=== PATIENT | male | born 1955 | race African-American/Black ===

== ENCOUNTER 2017-08-30 18:26 | Emergency (ER) | payer MEDICAID ==
[~2017-08-30] VITALS: Ht 175.3 cm; Wt 69.0 kg
[~2017-08-30 18:26] MED LIST: LISI30TA4 PO; OXYC-307 PO; OXYC30TA66 PO; TIMO1DRO2 OP
[2017-08-30] MEDS ORDERED: DIPH,PERTUSS(ACELL),TET VAC/PF 0.5 ML IM-VACC ONE (19:00)
[2017-08-30 19:07] LABS: BASOPHILS # (AUTO) 0.04 x10^3/uL (0-0.1); BASOPHILS % (AUTO) 1 % (0-1); EOSINOPHILS % (AUTO) 4 % (1-7); LYMPHOCYTES # (AUTO) 2.43 x10^3/uL (1-3.4); LYMPHOCYTES % (AUTO) 31 % (22-44); MD NO; MEAN CORPUSCULAR HEMOGLOBIN 28.1 pg (27.5-34.5); MEAN CORPUSCULAR HGB CONC 33.3 g/dL (33.2-36.2); MEAN CORPUSCULAR VOLUME 84.3 fL (81-97); MEAN PLATELET VOLUME 7.7 fL (7.4-10.4); MONOCYTES # (AUTO) 0.52 x10^3/uL (0.2-0.8); MONOCYTES % (AUTO) 7 % (2-9); NEUTROPHILS # (AUTO) 4.65 x10^3/uL (1.8-6.8); NEUTROPHILS % (AUTO) 58 % (42-75); PLATELET COUNT 324 x10^3/uL (130-400); RED BLOOD COUNT 5.02 x10^6/uL (4.38-5.82); RED CELL DISTRIBUTION WIDTH 13.2 % (9.4-14.8)
[2017-08-30 19:19] LABS: ALBUMIN 3.8 g/dL (3.4-5.0); ANION GAP 12 mmol/L (5-15); CALCIUM 8.6 mg/dL (8.5-10.1); CHLORIDE 109 mmol/L (98-107); CREATININE 0.94 mg/dL (0.7-1.3)
[2017-08-30 21:41] VITALS: BP 133/88
== END 2017-08-30 21:55 | disposition home or self-care (01) ==
LOC: ED 21:40
DX: S05.11XA Contusion of eyeball and orbital tissues, right eye, initial encounter (principal); S00.81XA Abrasion of other part of head, initial encounter; F10.120 Alcohol abuse with intoxication, uncomplicated; I10 Essential (primary) hypertension; F17.200 Nicotine dependence, unspecified, uncomplicated; X58.XXXA Exposure to other specified factors, initial encounter; Y93.89 Activity, other specified; Y92.89 Other specified places as the place of occurrence of the external cause; Y99.8 Other external cause status
CPT/HCPCS: 36415; 70450; 71045; 72125; 80048; 82040; 85025; 93005; 99285

== ENCOUNTER 2019-07-07 09:54 | Emergency (ER) | payer SELFPAY ==
[~2019-07-07] VITALS: Ht 170.2 cm; Wt 67.6 kg
[~2019-07-07 09:54] MED LIST changes: +LISI1TAB19 PO
[2019-07-07] MEDS ORDERED: ATENOLOL PO (10:25)
[2019-07-07] MEDS ORDERED: SODIUM CHLORIDE FLUSH 10ML SYR IVF ONE (10:30)
[2019-07-07] MEDS ORDERED: SODIUM CHLORIDE 0.9% 1,000ML IVBOLUS ONE ×2 (10:30→11:30)
[2019-07-07 10:49] LABS: BASOPHILS # (AUTO) 0.03 x10^3/uL (0-0.1); BASOPHILS % (AUTO) 0 % (0-1); EOSINOPHILS # (AUTO) 0.08 x10^3/uL (0-0.4); EOSINOPHILS % (AUTO) 1 % (1-7); LYMPHOCYTES # (AUTO) 1.63 x10^3/uL (1-3.4); LYMPHOCYTES % (AUTO) 20 % (22-44); MD NO; MEAN CORPUSCULAR HEMOGLOBIN 27.7 pg (27.5-34.5); MEAN CORPUSCULAR HGB CONC 33.5 g/dL (33.2-36.2); MEAN CORPUSCULAR VOLUME 82.6 fL (81-97); MEAN PLATELET VOLUME 7.9 fL (7.4-10.4); MONOCYTES # (AUTO) 0.84 x10^3/uL (0.2-0.8); MONOCYTES % (AUTO) 10 % (2-9); NEUTROPHILS # (AUTO) 5.76 x10^3/uL (1.8-6.8); NEUTROPHILS % (AUTO) 69 % (42-75); PLATELET COUNT 366 x10^3/uL (130-400); RED BLOOD COUNT 5.65 x10^6/uL (4.38-5.82); RED CELL DISTRIBUTION WIDTH 13.9 % (9.4-14.8)
[2019-07-07 10:55] LABS: ALBUMIN 4.1 g/dL (3.4-5.0); ANION GAP 9 mmol/L (5-15); CALCIUM 8.8 mg/dL (8.5-10.1); CHLORIDE 104 mmol/L (98-107); CREATININE 1.22 mg/dL (0.7-1.3)
--- NOTE | 2019-07-07 11:00 | NUR ---
PT SITTING IN BED WATCHING TV , RESPIRATIONS EVEN AND UNLABORED, NO SIGNS OF DISTRESS.
--- NOTE | 2019-07-07 12:03 | NUR ---
PT CONDITIONED UNCHANGED. WILL CONTINUE TO MONITOR.
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
[2019-07-07 12:39] LABS: AMPHETAMINE SCREEN, URINE Positive (Negative); BARBITURATE SCREEN, URINE Negative (Negative); BENZODIAZEPINE SCREEN, URINE Negative (Negative); CANNABINOID SCREEN, URINE Negative (Negative); COCAINE SCREEN, URINE Negative (Negative); METHADONE SCREEN, URINE Negative (Negative); OPIATE SCREEN, URINE Positive (Negative)
--- NOTE | 2019-07-07 12:49 | NUR ---
pt sitting in bed, no signs of distress.
[2019-07-07 13:50] VITALS: BP 158/89
== END 2019-07-07 13:54 | disposition home or self-care (01) ==
LOC: ED 13:48
DX: S80.211A Abrasion, right knee, initial encounter (principal); S60.511A Abrasion of right hand, initial encounter; F15.10 Other stimulant abuse, uncomplicated; E86.0 Dehydration; I10 Essential (primary) hypertension; W18.30XA Fall on same level, unspecified, initial encounter; Y93.89 Activity, other specified; Y92.009 Unspecified place in unspecified non-institutional (private) residence as the place of occurrence of the external cause; Y99.8 Other external cause status
CPT/HCPCS: 36415; 80048; 80307; 82040; 83605; 85025; 93005; 96360; 96361; 99285; J7030

== ENCOUNTER 2019-07-13 21:44 | Inpatient (IN) | payer OTHER ==
[~2019-07-13] VITALS: Ht 177.8 cm; Wt 69.1 kg
[~2019-07-13 21:44] MED LIST changes: +ATENOLOL PO; +ETOMIDATE 40 MG/20 ML ONE; +MIDAZOLAM 1 MG/ML, 5ML ONE; +PROPOFOL 10 MG/ML, 100ML IV ONE; +ROCURONIUM 10MG/ML,5ML ONE
[2019-07-13] MEDS ORDERED: SODIUM CHLORIDE 0.9% 1,000ML IVBOLUS ONE (22:00)
[2019-07-13] MEDS ORDERED: [UNRECOGNIZED DRUG - OTHER] IVPB ONE ×3 (22:30)
[2019-07-13] MEDS ORDERED: SODIUM CHLORIDE 0.9% IVPB ONE ×3 (22:30)
[2019-07-13 22:36] LABS: BASOPHILS # (AUTO) 0.01 x10^3/uL (0-0.1); BASOPHILS % (AUTO) 0 % (0-1); EOSINOPHILS # (AUTO) 0.15 x10^3/uL (0-0.4); EOSINOPHILS % (AUTO) 2 % (1-7); LYMPHOCYTES # (AUTO) 1.28 x10^3/uL (1-3.4); LYMPHOCYTES % (AUTO) 20 % (22-44); MD NO; MEAN CORPUSCULAR HEMOGLOBIN 27.5 pg (27.5-34.5); MEAN CORPUSCULAR HGB CONC 32.9 g/dL (33.2-36.2); MEAN CORPUSCULAR VOLUME 83.8 fL (81-97); MEAN PLATELET VOLUME 7.6 fL (7.4-10.4); MONOCYTES # (AUTO) 0.47 x10^3/uL (0.2-0.8); MONOCYTES % (AUTO) 7 % (2-9); NEUTROPHILS % (AUTO) 70 % (42-75); PLATELET COUNT 331 x10^3/uL (130-400); RED BLOOD COUNT 5.21 x10^6/uL (4.38-5.82); RED CELL DISTRIBUTION WIDTH 14.1 % (9.4-14.8)
[2019-07-13 22:50] LABS: ALBUMIN 3.5 g/dL (3.4-5.0); ANION GAP 6 mmol/L (5-15); CALCIUM 8.2 mg/dL (8.5-10.1); CHLORIDE 104 mmol/L (98-107)
[2019-07-13 22:54] LABS: ALANINE AMINOTRANSFERASE 37 U/L (12-78); ALKALINE PHOSPHATASE 71 U/L (45-117); CREATINE KINASE, TOTAL 577 U/L (39-308); CREATININE 0.83 mg/dL (0.7-1.3); TOTAL PROTEIN 7.7 g/dL (6.4-8.2); TROPONIN I < 0.015 ng/mL (0.000-0.045)
[2019-07-13 22:55] LABS: SALICYLATE LEVEL < 1.7 mg/dL (2.8-20.0)
--- NOTE | 2019-07-13 23:12 | NUR ---
THIS RN, EDTA, AND RT TO CT AND BACK. PT TOLERATED WELL.
--- NOTE | 2019-07-13 23:28 | NUR ---
PT AWAKENING. NO SEDATION MEDS ORDERED. CONSULTED ER MD AND THANH. 5MG VERSED IVP GIVEN. PROPOFOL STARTED.
[2019-07-13] MEDS ORDERED: ONDANSETRON 2MG/ML, 2ML IVPush PRN (23:30)
[2019-07-13] MEDS ORDERED: PROMETHAZINE 25 MG/ML, 1ML IM PRN (23:30)
[2019-07-13] MEDS ORDERED: LABETALOL 5MG/ML, 20ML IVPush PRN (23:30)
[2019-07-13] MEDS ORDERED: POTASSIUM CHLORIDE 40 MEQ in SODIUM CHLORIDE 0.9% 500 ML IV ONE (23:30)
[2019-07-13] MEDS ORDERED: ENALAPRILAT 1.25 MG/ML, 2ML IVPush PRN (23:30)
[2019-07-13] MEDS ORDERED: hydrALAzine 20 MG/ML, 1ML IVPush PRN (23:30)
[2019-07-13] MEDS: AMPICILLIN/SULBACTAM 3 GM in SODIUM CHLORIDE 0.9% 100 ML IV SCH (23:33)
--- NOTE | 2019-07-13 23:34 | NUR ---
WARMING MEASURES APPLIED
--- NOTE | 2019-07-13 23:40 | NUR ---
HAVE BEEN TITRATING PROPOFOL. NOW AT 30MCG/KG/MIN. AWAITING MAR ORDER FOR DOCUMENTATION.
--- NOTE | 2019-07-13 23:42 | NUR ---
CALLED PHARM. REQ FOR K+
[2019-07-14 00:13] LABS: AMPHETAMINE SCREEN, URINE Negative (Negative); BARBITURATE SCREEN, URINE Negative (Negative); BENZODIAZEPINE SCREEN, URINE Negative (Negative); CANNABINOID SCREEN, URINE Negative (Negative); COCAINE SCREEN, URINE Negative (Negative); METHADONE SCREEN, URINE Negative (Negative); OPIATE SCREEN, URINE Negative (Negative)
--- NOTE | 2019-07-14 00:18 | NUR ---
5MG VERSED GIVEN FOR SEVERE AGITATION. PROP INCREASED TO 40
[2019-07-14] MEDS ORDERED: NALOXONE 1 MG/ML, 2ML IVPush ONE (01:00)
[2019-07-14] MEDS ORDERED: PROPOFOL 100 ML IV PRN (01:00)
[2019-07-14] MEDS ORDERED: MIDAZOLAM 1 MG/ML, 2ML IVPush ONE (01:00)
[2019-07-14] MEDS ORDERED: LORazepam 2 MG/ML, 1ML IVPush ONE (01:00)
[2019-07-14] MEDS: ENOXAPARIN 40 MG/0.4 ML SQ SCH (01:26)
[2019-07-14] MEDS ORDERED: FENTANYL PF 100 MCG/2ML IVPush PRN (02:00)
[2019-07-14] MEDS ORDERED: PHARMACY MAY ADJ FOR RENAL FX MC SCH (02:00)
[2019-07-14] MEDS ORDERED: LIDOCAINE-MPF 1%, 2ML ENDO PRN (02:00)
[2019-07-14] MEDS: SODIUM CHLORIDE 0.9% 1,000 ML IV SCH ×2 (02:00→13:18)
[2019-07-14 02:15] VITALS: BP 132/88
[2019-07-14 03:53] LABS: MICROSCOPIC INDICATED
[2019-07-14 04:00] VITALS: BP 135/90
[2019-07-14 04:01] LABS: CULTURE INDICATED? YES
[2019-07-14] MEDS: PROPOFOL 100 ML IV PRN ×4 (04:03→22:59)
[2019-07-14] MEDS: AMPICILLIN/SULBACTAM 3 GM in SODIUM CHLORIDE 0.9% 100 ML IV SCH ×4 (04:25→23:00)
[2019-07-14 04:54] LABS: BASOPHILS % (AUTO) 0 % (0-1); EOSINOPHILS # (AUTO) 0.08 x10^3/uL (0-0.4); EOSINOPHILS % (AUTO) 1 % (1-7); LYMPHOCYTES # (AUTO) 1.07 x10^3/uL (1-3.4); LYMPHOCYTES % (AUTO) 14 % (22-44); MD NO; MEAN CORPUSCULAR HEMOGLOBIN 27.4 pg (27.5-34.5); MEAN CORPUSCULAR VOLUME 83.1 fL (81-97); MEAN PLATELET VOLUME 7.5 fL (7.4-10.4); MONOCYTES # (AUTO) 0.22 x10^3/uL (0.2-0.8); MONOCYTES % (AUTO) 3 % (2-9); NEUTROPHILS % (AUTO) 82 % (42-75); PLATELET COUNT 322 x10^3/uL (130-400); RED BLOOD COUNT 4.86 x10^6/uL (4.38-5.82); RED CELL DISTRIBUTION WIDTH 13.4 % (9.4-14.8)
[2019-07-14] MEDS ORDERED: OMNIPAQUE 350 MG/ML, 100ML BOTTLE ONE (04:59)
[2019-07-14 05:03] LABS: ALBUMIN 3.2 g/dL (3.4-5.0); ANION GAP 8 mmol/L (5-15); CALCIUM 7.7 mg/dL (8.5-10.1); CHLORIDE 111 mmol/L (98-107)
[2019-07-14 05:14] LABS: ALANINE AMINOTRANSFERASE 37 U/L (12-78); ALKALINE PHOSPHATASE 63 U/L (45-117); CREATINE KINASE, TOTAL 432 U/L (39-308); CREATININE 0.59 mg/dL (0.7-1.3)
[2019-07-14] MEDS ORDERED: POTASSIUM PHOSPHATE 22 MEQ in SODIUM CHLORIDE 0.9% 500 ML IV ONE (06:30)
[2019-07-14] MEDS: PHENYTOIN SODIUM 50 MG/ML, 2ML IVPush SCH ×3 (08:26→21:10)
[2019-07-14] MEDS: PANTOPRAZOLE 40 MG IV IVPush SCH (08:26)
[2019-07-14] MEDS: METHIMAZOLE 5 MG TAB PO SCH ×2 (08:26→16:50)
[2019-07-14] MEDS ORDERED: METOPROLOL TARTRATE 25 MG TAB PO SCH (12:30)
[2019-07-14] MEDS: ERYTHROMYCIN OPHTH 0.5%, 1GM EACHEYE SCH ×3 (13:17→20:50)
[2019-07-14] MEDS: METOPROLOL TARTRATE 25 MG TAB PO/NG SCH (20:57)
[2019-07-14 22:46] VITALS: BP 104/68
[2019-07-14] MEDS ORDERED: SODIUM CHLORIDE 0.9%, 500ML IVBOLUS ONE (23:30)
[2019-07-15] MEDS: METHIMAZOLE 5 MG TAB PO SCH ×3 (00:37→15:47)
[2019-07-15] MEDS: ENOXAPARIN 40 MG/0.4 ML SQ SCH (00:38)
[2019-07-15 04:00] VITALS: BP 151/89
[2019-07-15 04:09] LABS: BASOPHILS # (AUTO) 0.03 x10^3/uL (0-0.1); BASOPHILS % (AUTO) 0 % (0-1); EOSINOPHILS # (AUTO) 0.22 x10^3/uL (0-0.4); EOSINOPHILS % (AUTO) 3 % (1-7); LYMPHOCYTES # (AUTO) 1.81 x10^3/uL (1-3.4); LYMPHOCYTES % (AUTO) 25 % (22-44); MD NO; MEAN CORPUSCULAR HEMOGLOBIN 27.8 pg (27.5-34.5); MEAN CORPUSCULAR VOLUME 84.1 fL (81-97); MEAN PLATELET VOLUME 7.8 fL (7.4-10.4); MONOCYTES # (AUTO) 0.73 x10^3/uL (0.2-0.8); MONOCYTES % (AUTO) 10 % (2-9); NEUTROPHILS # (AUTO) 4.43 x10^3/uL (1.8-6.8); NEUTROPHILS % (AUTO) 61 % (42-75); PLATELET COUNT 288 x10^3/uL (130-400); RED BLOOD COUNT 4.43 x10^6/uL (4.38-5.82)
[2019-07-15] MEDS: AMPICILLIN/SULBACTAM 3 GM in SODIUM CHLORIDE 0.9% 100 ML IV SCH ×4 (04:10→23:00)
[2019-07-15] MEDS: METOPROLOL TARTRATE 25 MG TAB PO/NG SCH ×4 (04:10→20:48)
[2019-07-15 04:18] LABS: ANION GAP 8 mmol/L (5-15); CALCIUM 7.8 mg/dL (8.5-10.1); CHLORIDE 113 mmol/L (98-107); CREATININE 0.77 mg/dL (0.7-1.3)
[2019-07-15] MEDS: PROPOFOL 100 ML IV PRN (05:48)
[2019-07-15] MEDS: SODIUM CHLORIDE 0.9% 1,000 ML IV SCH ×2 (05:48→22:47)
[2019-07-15] MEDS: ERYTHROMYCIN OPHTH 0.5%, 1GM EACHEYE SCH ×4 (06:13→21:26)
[2019-07-15] MEDS ORDERED: POTASSIUM CHLORIDE 10% 20 MEQ/15 ML UDC PO ONE (06:30)
[2019-07-15] MEDS: PANTOPRAZOLE 40 MG IV IVPush SCH (07:28)
[2019-07-15] MEDS: PHENYTOIN SODIUM 50 MG/ML, 2ML IVPush SCH ×4 (09:27→21:25)
[2019-07-15] MEDS ORDERED: POTASSIUM PHOSPHATE 22 MEQ in SODIUM CHLORIDE 0.9% 500 ML IV ONE (12:30)
[2019-07-16] MEDS: ENOXAPARIN 40 MG/0.4 ML SQ SCH ×2 (00:37→23:56)
[2019-07-16 04:34] VITALS: BP 127/67
[2019-07-16] MEDS: METOPROLOL TARTRATE 25 MG TAB PO/NG SCH ×3 (04:48→20:41)
[2019-07-16 04:50] LABS: FIO2 RA %
[2019-07-16 05:03] LABS: BASOPHILS # (AUTO) 0.03 x10^3/uL (0-0.1); BASOPHILS % (AUTO) 0 % (0-1); EOSINOPHILS % (AUTO) 4 % (1-7); LYMPHOCYTES # (AUTO) 1.75 x10^3/uL (1-3.4); LYMPHOCYTES % (AUTO) 25 % (22-44); MD NO; MEAN CORPUSCULAR HEMOGLOBIN 27.4 pg (27.5-34.5); MEAN CORPUSCULAR HGB CONC 32.7 g/dL (33.2-36.2); MEAN CORPUSCULAR VOLUME 83.8 fL (81-97); MEAN PLATELET VOLUME 7.9 fL (7.4-10.4); MONOCYTES # (AUTO) 0.61 x10^3/uL (0.2-0.8); MONOCYTES % (AUTO) 9 % (2-9); NEUTROPHILS # (AUTO) 4.37 x10^3/uL (1.8-6.8); NEUTROPHILS % (AUTO) 62 % (42-75); PLATELET COUNT 327 x10^3/uL (130-400); RED CELL DISTRIBUTION WIDTH 13.6 % (9.4-14.8)
[2019-07-16 05:11] LABS: ANION GAP 12 mmol/L (5-15); CALCIUM 7.8 mg/dL (8.5-10.1); CHLORIDE 114 mmol/L (98-107)
[2019-07-16 05:30] LABS: CREATININE 0.69 mg/dL (0.7-1.3)
[2019-07-16] MEDS: AMPICILLIN/SULBACTAM 3 GM in SODIUM CHLORIDE 0.9% 100 ML IV SCH ×2 (05:50→11:04)
[2019-07-16] MEDS: ERYTHROMYCIN OPHTH 0.5%, 1GM EACHEYE SCH ×4 (06:00→20:42)
[2019-07-16] MEDS: METHIMAZOLE 5 MG TAB PO SCH ×3 (07:25→18:42)
[2019-07-16] MEDS: PANTOPRAZOLE 40 MG IV IVPush SCH (07:26)
[2019-07-16] MEDS: NEUTRA PHOS K 250 MG TABLET PO SCH ×3 (07:26→20:41)
[2019-07-16 12:54] VITALS: BP 144/80
[2019-07-16 20:38] VITALS: BP 123/62
[2019-07-16] MEDS: PHENYTOIN 100 MG CAPSULE PO SCH (20:41)
[2019-07-17 02:46] VITALS: BP 121/67
[2019-07-17] MEDS: METHIMAZOLE 5 MG TAB PO SCH ×3 (02:46→19:28)
[2019-07-17 05:23] LABS: BASOPHILS % (AUTO) 2 % (0-1); EOSINOPHILS # (AUTO) 0.25 x10^3/uL (0-0.4); EOSINOPHILS % (AUTO) 5 % (1-7); LYMPHOCYTES % (AUTO) 32 % (22-44); MD NO; MEAN CORPUSCULAR HEMOGLOBIN 27.7 pg (27.5-34.5); MEAN CORPUSCULAR VOLUME 83.9 fL (81-97); MEAN PLATELET VOLUME 7.5 fL (7.4-10.4); MONOCYTES # (AUTO) 0.51 x10^3/uL (0.2-0.8); MONOCYTES % (AUTO) 10 % (2-9); NEUTROPHILS # (AUTO) 2.78 x10^3/uL (1.8-6.8); NEUTROPHILS % (AUTO) 52 % (42-75); PLATELET COUNT 348 x10^3/uL (130-400); RED BLOOD COUNT 4.42 x10^6/uL (4.38-5.82); RED CELL DISTRIBUTION WIDTH 13.7 % (9.4-14.8)
[2019-07-17 05:25] VITALS: BP 155/81
[2019-07-17] MEDS: METOPROLOL TARTRATE 25 MG TAB PO/NG SCH ×3 (05:30→21:13)
[2019-07-17] MEDS: ERYTHROMYCIN OPHTH 0.5%, 1GM EACHEYE SCH ×4 (05:30→21:13)
[2019-07-17 05:38] LABS: ANION GAP 5 mmol/L (5-15); CALCIUM 7.8 mg/dL (8.5-10.1); CHLORIDE 113 mmol/L (98-107)
[2019-07-17 05:39] LABS: CREATININE 0.72 mg/dL (0.7-1.3)
[2019-07-17] MEDS ORDERED: POTASSIUM CHLORIDE 20 MEQ TAB.ER.PRT PO ONE (06:30)
[2019-07-17 07:54] VITALS: BP 158/81
[2019-07-17] MEDS: NEUTRA PHOS K 250 MG TABLET PO SCH ×3 (10:02→21:13)
[2019-07-17] MEDS: PANTOPRAZOLE 40 MG IV IVPush SCH (10:02)
[2019-07-17 14:04] VITALS: BP 148/69
[2019-07-17 20:07] VITALS: BP 143/72
[2019-07-17] MEDS: PHENYTOIN 100 MG CAPSULE PO SCH (21:13)
[2019-07-17] MEDS: ENOXAPARIN 40 MG/0.4 ML SQ SCH (23:57)
[2019-07-18 00:03] VITALS: BP 151/73
[2019-07-18] MEDS: METHIMAZOLE 5 MG TAB PO SCH ×3 (02:43→11:54)
[2019-07-18] MEDS: ERYTHROMYCIN OPHTH 0.5%, 1GM EACHEYE SCH ×2 (05:32→10:02)
[2019-07-18] MEDS: METOPROLOL TARTRATE 25 MG TAB PO/NG SCH ×2 (05:32→15:33)
[2019-07-18 05:44] LABS: ANION GAP 6 mmol/L (5-15); CALCIUM 8.1 mg/dL (8.5-10.1); CHLORIDE 111 mmol/L (98-107); CREATININE 0.81 mg/dL (0.7-1.3)
[2019-07-18] MEDS ORDERED: PANTOPRAZOLE 40MG TABLET PO SCH (06:00)
[2019-07-18 06:28] LABS: BASOPHILS # (AUTO) 0.05 x10^3/uL (0-0.1); BASOPHILS % (AUTO) 1 % (0-1); EOSINOPHILS # (AUTO) 0.19 x10^3/uL (0-0.4); EOSINOPHILS % (AUTO) 5 % (1-7); LYMPHOCYTES # (AUTO) 1.51 x10^3/uL (1-3.4); LYMPHOCYTES % (AUTO) 38 % (22-44); MD NO; MEAN CORPUSCULAR HEMOGLOBIN 27.5 pg (27.5-34.5); MEAN CORPUSCULAR HGB CONC 32.7 g/dL (33.2-36.2); MEAN CORPUSCULAR VOLUME 84.1 fL (81-97); MONOCYTES # (AUTO) 0.39 x10^3/uL (0.2-0.8); MONOCYTES % (AUTO) 10 % (2-9); NEUTROPHILS # (AUTO) 1.87 x10^3/uL (1.8-6.8); NEUTROPHILS % (AUTO) 47 % (42-75); PLATELET COUNT 399 x10^3/uL (130-400); RED BLOOD COUNT 4.64 x10^6/uL (4.38-5.82); RED CELL DISTRIBUTION WIDTH 13.8 % (9.4-14.8)
[2019-07-18] MEDS ORDERED: POTASSIUM CHLORIDE 20 MEQ TAB.ER.PRT PO SCH (08:00)
[2019-07-18 08:26] VITALS: BP 150/82
[2019-07-18] MEDS ORDERED: LISINOPRIL 10 MG TABLET PO SCH (09:00)
[2019-07-18] MEDS ORDERED: HYDROCHLOROTHIAZIDE 12.5 MG CAPSULE PO SCH (10:00)
[2019-07-18] MEDS ORDERED: TIMOLOL OPHTH 0.5%, 5ML EACHEYE SCH (10:00)
[2019-07-18] MEDS ORDERED: TIMO5DRO5 EACHEYE (13:59)
[2019-07-18] MEDS ORDERED: PHEN100C PO (13:59)
[2019-07-18] MEDS ORDERED: METH10TA6 PO (13:59)
[2019-07-18] MEDS ORDERED: LISI1TAB19 PO (13:59)
[2019-07-18] MEDS ORDERED: FLU VACC QS2019-20 36MOS UP/PF 0.5 ML IM-VACC ONE (15:00)
[2019-07-18 15:02] VITALS: BP 134/80
== END 2019-07-18 17:56 | disposition home or self-care (01) | DRG 208 ==
LOC: ED 22:09 → SUATTDRO 22:57 → EDIP 07-14 00:14 → CCU 07-14 00:29 → 3N 07-16 13:18
PROVIDERS: ADMIT Internal Medicine; ATTEND Family Medicine
PROC: 0T9B70Z Drainage of Bladder with Drainage Device, Via Natural or Artificial Opening (ICD-10-PCS; principal; 2019-07-14)
PROC: 5A1945Z Respiratory Ventilation, 24-96 Consecutive Hours (ICD-10-PCS; 2019-07-14)
PROC: 0BH17EZ Insertion of Endotracheal Airway into Trachea, Via Natural or Artificial Opening (ICD-10-PCS; 2019-07-14)
DX: J69.0 Pneumonitis due to inhalation of food and vomit (principal); J96.01 Acute respiratory failure with hypoxia; Z99.11 Dependence on respirator [ventilator] status; E87.2 Acidosis; G40.901 Epilepsy, unspecified, not intractable, with status epilepticus; I10 Essential (primary) hypertension; F15.90 Other stimulant use, unspecified, uncomplicated; E87.6 Hypokalemia; G89.4 Chronic pain syndrome; E05.90 Thyrotoxicosis, unspecified without thyrotoxic crisis or storm; E83.39 Other disorders of phosphorus metabolism; H40.9 Unspecified glaucoma; Z59.0 Homelessness; Z23 Encounter for immunization; Z79.899 Other long term (current) drug therapy
CPT/HCPCS: 36415; 36600; 72190; 96361; 96374; 96375; 99291; J3490; 70450; 70551; 71045; 80048; 80053; 80185; 80307; 81001; 82140; 82550; 82803; 83605; 83735; 84100; 84439; 84443; 84478; 84484; 85025; 87040; 87070; 87081; 87086; 87205; 90686; 93005; 94002; 94003; 94150; 95819; G0378; J0295; J1165; J1650; J2250; J2704; J3480; Q9967; C9113; J2060; J2310; J7030; J7040; J7050

== ENCOUNTER 2019-10-07 14:37 | Emergency (ER) | payer MEDICAID ==
[~2019-10-07] VITALS: Ht 172.7 cm; Wt 69.5 kg
[~2019-10-07 14:37] MED LIST changes: -ETOMIDATE 40 MG/20 ML ONE; +METH10TA6 PO; -MIDAZOLAM 1 MG/ML, 5ML ONE; +PHEN100C PO; -PROPOFOL 10 MG/ML, 100ML IV ONE; -ROCURONIUM 10MG/ML,5ML ONE; +TIMO5DRO5 EACHEYE
--- NOTE | 2019-10-07 14:56 | NUR ---
BREAK RN: THIS IS A 63 YEAR OLD MALE WHO C/O OF UPPER LEFT LEG PAIN AND SWELLING.
--- NOTE | 2019-10-07 15:00 | NUR ---
BREAK RN: PT STATES PAIN IS 10/10 UNABLE TO BEAR WEIGHT ON LEG. WARM BLANKET GIVEN. CALL LIGHT IN PLACE
[2019-10-07] MEDS ORDERED: OXYcodone/APAP 5/325MG TABLET PO ONE (15:30)
[2019-10-07] MEDS ORDERED: OXYcodone/APAP 5/325MG TABLET ONE (15:31)
[2019-10-07 17:01] VITALS: BP 136/88
== END 2019-10-07 17:03 | disposition home or self-care (01) ==
LOC: ED 15:45
DX: L03.116 Cellulitis of left lower limb (principal); R60.0 Localized edema; I10 Essential (primary) hypertension; F17.200 Nicotine dependence, unspecified, uncomplicated
CPT/HCPCS: 99284